=== PATIENT | male | born 1990 | race Caucasian/White ===

== ENCOUNTER 2018-10-20 13:32 | Emergency (ER) | payer OTHER, SELFPAY ==
[2018-10-20 13:38] VITALS: BP 139/90; PULSE 97; RESP 20; TEMP 37.3; O2SAT 98; BMI 27.6
--- NOTE | 2018-10-20 14:12 | PC.NURSE ---
sliced 4th right digit with mandolin. 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
--- NOTE | 2018-10-20 14:43 | ED.WOUNDLAC ---
HPI - Wound/Laceration <Lucinda Rosario PA-C - Last Filed: 10/20/18 19:44> General Chief Complaint: Wound/Laceration Stated Complaint: GASH ON RT HAND RING FINGER TIP Time Seen by Provider: 10/20/18 14:43 Source: patient Mode of arrival: ambulatory Limitations: no limitations History of Present Illness HPI narrative: This healthy 28-year-old right-handed male was using a mandoline at work when he sliced his right pointer finger. He states it was bleeding profusely initially. He cleaned it thoroughly at work. He states it was a little tingly and numb initially, now the more tender. He denies any weakness or difficulty with movement. He denies any other injury. His tetanus vaccine is up-to-date in the last 2 years. Related Data Previous Rx's Medication Instructions Recorded cephalexin [Keflex] 500 mg PO QID #20 cap 05/30/17 Allergies Allergy/AdvReac Type Severity Reaction Status Date / Time No Known Drug Allergies Allergy Verified 10/20/18 14:36 Review of Systems <Lucinda Rosario PA-C - Last Filed: 10/20/18 19:44> Review of Systems ROS Unobtainable: All systems reviewed & are unremarkable except as noted in HPI and below PFSH <Lucinda Rosario PA-C - Last Filed: 10/20/18 19:44> Medical History Healthy adult male (Chronic) Surgical History History of cholesteatoma (Resolved) Social History Smoking Status: Never smoker Social History Smoking Status: Never smoker Comment: Occasional ETOH Exam <Lucinda Rosario PA-C - Last Filed: 10/20/18 19:44> Narrative Exam Narrative: GENERAL APPEARANCE: Patient sitting comfortably, in no distress. LUNGS: Clear to auscultation bilaterally. HEART: Rate and rhythm regular without murmur, normal S1 and S2, no S3 or S4. DERMATOLOGIC: Right ring finger medial border of the pad there is a 1.4 cm laceration that has a 2 mm gap, 3 mm maximal depth, tender surrounding the wound, not actively bleeding MUSCULOSKELETAL: Right ring finger full range of motion, strength is intact against resistance in all hightower NEUROVASCULAR: Right ring finger is warm and pink with brisk cap refill, sensation grossly intact Initial Vital Signs Initial Vital Signs: Vital Signs Temperature 99.2 F 10/20/18 13:38 Pulse Rate 97 H 10/20/18 13:38 Respiratory Rate 20 10/20/18 13:38 Blood Pressure 139/90 10/20/18 13:38 Pulse Oximetry 98 10/20/18 13:38 <DO Ten Au Last Filed: 10/22/18 19:27> Initial Vital Signs Initial Vital Signs: Vital Signs Temperature 99.2 F 10/20/18 13:38 Pulse Rate 97 H 10/20/18 13:38 Respiratory Rate 20 10/20/18 13:38 Blood Pressure 139/90 10/20/18 13:38 Pulse Oximetry 98 10/20/18 13:38 Procedures <LEANDRA Guzman Last Filed: 10/20/18 19:44> Laceration Repair Laceration 1: Site: hand Side (If applicable): right Size (cm): 1.4 Description: linear Depth: simple, single layer Local Anesthetic: lidocaine 1% Amount of anesthesia used (mL): 6 Pre-repair: wound explored, irrigated extensively and deep structures intact Skin layer closed with: nylon Size (cm): 5-0 (2) Number of sutures: 4 Technique: simple, interrupted Course <LEANDRA Guzman Last Filed: 10/20/18 19:44> Orders Ordered: Discontinued Medications Ibuprofen (Advil) 800 mg PO NOW ONE Stop: 10/20/18 14:59 Last Admin: 10/20/18 15:00 Dose: 800 mg Vital Signs - 8 hr 10/20/18 13:38 Temperature 99.2 F Pulse Rate 97 H Respiratory Rate 20 Blood Pressure 139/90 Pulse Oximetry 98 <DO Ten Au Last Filed: 10/22/18 19:27> Orders Ordered: Discontinued Medications Ibuprofen (Advil) 800 mg PO NOW ONE Stop: 10/20/18 14:59 Last Admin: 10/20/18 15:00 Dose: 800 mg Vital Signs - 8 hr 10/20/18 13:38 Temperature 99.2 F Pulse Rate 97 H Respiratory Rate 20 Blood Pressure 139/90 Pulse Oximetry 98 Discharge Plan Departure Patient Disposition: Home Clinical Impression: Laceration of left index finger Qualifiers: Encounter type: initial encounter Damage to nail status: without damage Foreign body presence: without foreign body Qualified Code(s): S61.211A - Laceration without foreign body of left index finger without damage to nail, initial encounter Discharge Date/Time: 10/20/18 16:08 Interventions: ED Discharge Assessment Last Done: 10/20/18 16:07 Instructions: DI for Laceration Repair -- Finger Activity Restrictions/Additional Instructions: Keep your stitches clean and dry. Keep them covered at work. You can leave uncovered an open to air if you are relaxing and not working. It is okay to rinse them and pat dry quickly, i.e. if you are showering. They should be ready to remove in a week. You can return here or to walk in to have them removed, or [facility] on commercial will be happy to see you under your labor and Industries the claim to have your sutures removed as well. You should return here or be seen at a walk-in clinic right away if any signs of infection, i.e. redness, increased pain or swelling, draining pus or fever. Prescriptions: No Action cephalexin [Keflex] 500 MG capsule 500 mg PO QID Qty: 20 RF: 0 Referrals: [facility] [Provider Group] <Renay Lund DO - Last Filed: 10/22/18 19:27> Cosign ED Attending Cosignature Attestation: I was immediately available in the department for consultation. This documentation has been reviewed, unclear if patient did receive sutures or if was treated as avulsion injury. Supervised by Renay Lund DO
[2018-10-20] MEDS: IBUPROFEN 400 MG TABLET 800 MG PO (15:00)
== END 2018-10-20 16:08 | disposition home or self-care (01) ==
PROVIDERS: Emergency Provider Internal Medicine
DX: S61.210A Laceration without foreign body of right index finger without damage to nail, initial encounter (principal); W26.8XXA Contact with other sharp object(s), not elsewhere classified, initial encounter; Y99.0 Civilian activity done for income or pay
CPT/HCPCS: 12001; 99283

== ENCOUNTER 2019-05-18 12:34 | Emergency (ER) | payer OTHER, SELFPAY ==
[2019-05-18 12:40] VITALS: BP 175/94; PULSE 103; RESP 18; TEMP 36.9; O2SAT 100
[2019-05-18 13:12] LABS: Add Manual Diff / Slide Review NO; Basophils Absolute Auto 0 /uL (0-100); Basophils Percent Auto 0.7 % (0-2); Eosinophils Absolute Auto 100 /uL (0-450); Eosinophils Percent Auto 2.3 % (2-4); Hematocrit 47.7 % (41-53); Hemoglobin 16.6 g/dL (13.5-17.5); Lymphocytes Absolute Auto 1700 /uL (1100-4500); Lymphocytes Percent Auto 32.2 % (25-40); Mean Corpuscular HGB Conc 34.7 % (30-36); Mean Corpuscular Hemoglobin 29.6 PG (26-34); Mean Corpuscular Volume 85.2 fL (80-100); Monocytes Absolute Auto 400 /uL (0-900); Monocytes Percent Auto 7.6 % (3-14); Neutrophils Absolute Auto 2900 /uL (1500-7000); Neutrophils Percent Auto 57.2 % (50-75); Platelet Count 208 X10^3/uL (150-400); Red Cell Distribution Width 13.4 % (11.6-14.8); White Blood Cell Count 5.1 X10^3/uL (4.5-11.0)
[2019-05-18] MEDS: SODIUM CHLORIDE 0.9% 1,000 ML 1000 ML IV (13:15)
[2019-05-18 13:18] LABS: INR 0.9 (0.9-1.3); Prothrombin Time 10.8 SECONDS (10.1-12.7)
[2019-05-18 13:21] LABS: PTT Partial Thromboplastin Tim 37 SECONDS (26.4-36.2)
[2019-05-18 13:23] LABS: Alanine Aminotransferase 46 IU/L (21-72); Albumin Globulin Ratio 1.7 (1.0-2.8); Alkaline Phosphatase 53 U/L (38-126); Aspartate Aminotransferase 29 IU/L (17-59); BUN Creatinine Ratio 17.8 (6-22); Bilirubin Total 0.6 mg/dL (0.2-1.3); Blood Urea Nitrogen 16 mg/dL (9-20); Calcium 9.6 mg/dL (8.4-10.2); Carbon Dioxide 27 mmol/L (22-32); Chloride 103 mmol/L (98-107); Estimated Glomerular Filt Rate > 60.0 mL/min (>60); Globulin 2.9 g/dL (1.7-4.1); Glucose 110 mg/dL (70-100); HEMOLYSIS < 15 (0-50); Lipase 43 U/L (23-300); Potassium 4.1 mmol/L (3.4-5.1); Sodium 141 mmol/L (137-145); Total Protein 7.9 g/dL (6.3-8.2)
--- NOTE | 2019-05-18 13:23 | ED.MALEGU ---
HPI - Male Genitourinary General Chief complaint: Urogenital-Male Stated complaint: uti Time Seen by Provider: 05/18/19 13:18 Related Data Allergies Allergy/AdvReac Type Severity Reaction Status Date / Time ciprofloxacin [From Cipro] AdvReac Intermediate Joint Pain Verified 05/18/19 12:43 [facility] Medical History (Updated 10/20/18 @ 15:57 by Lucinda Rosario PA-C) Healthy adult male (Chronic) Surgical History (Updated 10/20/18 @ 15:09 by Lucinda oRsario PA-C) History of cholesteatoma (Resolved) Social History Smoking Status: Never smoker Social History Smoking Status: Never smoker Exam Initial Vital Signs Initial Vital Signs: Vital Signs Temperature 98.4 F 05/18/19 12:40 Pulse Rate 103 H 05/18/19 12:40 Respiratory Rate 18 05/18/19 12:40 Blood Pressure 175/94 H 05/18/19 12:40 Pulse Oximetry 100 05/18/19 12:40 Course Orders Ordered: ED Orders 05/18/19 12:57 Complete Blood Count AUTO DIFF Stat Comprehensive Metabolic Panel Stat Lactate (Lactic Acid) Stat Lipase Stat Partial Thromboplastin Time Stat Prothrombin Time INR Stat 05/18/19 13:19 Blood Culture Stat Sodium Chloride (Normal Saline 0.9%) 1,000 mls @ 1,000 mls/hr IV BOLUS ONE Stop: 05/18/19 13:43 Last Admin: 05/18/19 13:15 Dose: 1,000 mls/hr Documented by: MERLIN Vital Signs Vital signs: Vital Signs - 8 hr 05/18/19 12:40 Temperature 98.4 F Pulse Rate 103 H Respiratory Rate 18 Blood Pressure 175/94 H Pulse Oximetry 100 MDM - Male Genitourinary Lab Data Result diagrams: 05/18/19 12:57 05/18/19 12:57 Labs: Lab Results 05/18/19 05/18/19 05/18/19 Range/Units 12:57 12:57 12:57 WBC 5.1 (4.5-11.0) X10^3/uL RBC 5.60 (4.5-5.9) X10^6/uL Hgb 16.6 (13.5-17.5) g/dL Hct 47.7 (41-53) % MCV 85.2 (80-100) fL MCH 29.6 (26-34) PG MCHC 34.7 (30-36) % RDW 13.4 (11.6-14.8) % Plt Count 208 (150-400) X10^3/uL Neut % (Auto) 57.2 (50-75) % Lymph % (Auto) 32.2 (25-40) % [place] % (Auto) 7.6 (3-14) % Eos % (Auto) 2.3 (2-4) % Baso % (Auto) 0.7 (0-2) % Neut # (Auto) 2900 (0112-9830) /uL Lymph # (Auto) 1700 (8807-3038) /uL [place] # (Auto) 400 (0-900) /uL Eos # (Auto) 100 (0-450) /uL Baso # (Auto) 0 (0-100) /uL PT 10.8 (10.1-12.7) SECONDS INR 0.9 (0.9-1.3) APTT 37 H (26.4-36.2) SECONDS Sodium 141 (137-145) mmol/L Potassium 4.1 (3.4-5.1) mmol/L Chloride 103 (98-107) mmol/L Carbon Dioxide 27 (22-32) mmol/L BUN 16 (9-20) mg/dL Creatinine 0.90 (0.66-1.25) mg/dL Estimated GFR > 60.0 (>60) mL/min BUN/Creatinine Ratio 17.8 (6-22) Glucose 110 H (70-100) mg/dL Lactate (0.7-2.1) mmol/L Calcium 9.6 (8.4-10.2) mg/dL Total Bilirubin 0.6 (0.2-1.3) mg/dL AST 29 (17-59) IU/L ALT 46 (21-72) IU/L Alkaline Phosphatase 53 (38-126) U/L Total Protein 7.9 (6.3-8.2) g/dL Albumin 5.0 (3.5-5.0) g/dL Globulin 2.9 (1.7-4.1) g/dL Albumin/Globulin Ratio 1.7 (1.0-2.8) Lipase 43 (23-300) U/L 05/18/19 Range/Units 12:57 WBC (4.5-11.0) X10^3/uL RBC (4.5-5.9) X10^6/uL Hgb (13.5-17.5) g/dL Hct (41-53) % MCV (80-100) fL MCH (26-34) PG MCHC (30-36) % RDW (11.6-14.8) % Plt Count (150-400) X10^3/uL Neut % (Auto) (50-75) % Lymph % (Auto) (25-40) % [place] % (Auto) (3-14) % Eos % (Auto) (2-4) % Baso % (Auto) (0-2) % Neut # (Auto) (6736-0240) /uL Lymph # (Auto) (5407-8868) /uL [place] # (Auto) (0-900) /uL Eos # (Auto) (0-450) /uL Baso # (Auto) (0-100) /uL PT (10.1-12.7) SECONDS INR (0.9-1.3) APTT (26.4-36.2) SECONDS Sodium (137-145) mmol/L Potassium (3.4-5.1) mmol/L Chloride (98-107) mmol/L Carbon Dioxide (22-32) mmol/L BUN (9-20) mg/dL Creatinine (0.66-1.25) mg/dL Estimated GFR (>60) mL/min BUN/Creatinine Ratio (6-22) Glucose (70-100) mg/dL Lactate 1.0 (0.7-2.1) mmol/L Calcium (8.4-10.2) mg/dL Total Bilirubin (0.2-1.3) mg/dL AST (17-59) IU/L ALT (21-72) IU/L Alkaline Phosphatase (38-126) U/L Total Protein (6.3-8.2) g/dL Albumin (3.5-5.0) g/dL Globulin (1.7-4.1) g/dL Albumin/Globulin Ratio (1.0-2.8) Lipase (23-300) U/L
--- NOTE | 2019-05-18 14:02 | DI.CT.S_ITS ---
PROCEDURE: CT ABDOMEN PELVIS W CON INDICATIONS: bilateral lower abdomen pain, hx of colitis, UIT. abx med co TECHNIQUE: After the administration of oral and intravenous contrast, 5 mm thick sections acquired from the diaphragms to the symphysis. 5 mm thick coronal and sagittal reformats were performed. For radiation dose reduction, the following was used: automated exposure control, adjustment of mA and/or kV according to patient size. COMPARISON: [facility], CT, CT KUB, 12/15/2018, 16:13. [facility], CT, KUB - CT (PNL), 02/05/2012, 15:48. FINDINGS: Image quality: Diagnostic. ABDOMEN: Lung bases: Lung bases are clear. Heart size is normal. Solid organs: Liver is normal in size and enhancement. Gallbladder is not inflamed or enlarged. Biliary system is non-dilated. Pancreas enhances normally. Spleen is normal in size and enhancement. No adrenal nodules. Kidneys are normal in size and enhancement, without hydronephrosis. Peritoneum and bowel: The stomach is unremarkable. There may be mild wall thickening of the proximal duodenum with associated fatty infiltration, similar to the prior study. Small bowel loops are nondilated. The appendix is well-visualized and normal. A large amount of stool is seen throughout the colon. No mesenteric inflammation is evident. However, there is focal thickening of the wall of the splenic flexure of the colon. Otherwise, the remainder of the colon is unremarkable. Nodes and vessels: No retroperitoneal or mesenteric adenopathy. Aorta and inferior vena cava are normal in caliber. Bones: No acute fracture or suspicious osseous lesion is present. There are mild degenerative changes of the lower thoracic spine. PELVIS: Genitourinary: Bladder wall thickness is normal. Miscellaneous: Small fat-containing bilateral inguinal hernias are present. There is no free fluid or loculated fluid collection. No lymphadenopathy is identified. Bones: No suspicious bony lesions. No acute pelvic fractures are evident. Mild to moderate degenerative changes of the bilateral hips are more than expected for the patient's age. IMPRESSION: 1. Nonspecific wall thickening involving the duodenum and splenic flexure of the colon may be related to incomplete distention. However, focal duodenitis/colitis is difficult to exclude and clinical correlation is recommended. 2. Probable constipation. No bowel obstruction. 3. Small fat-containing bilateral inguinal hernias. 4. Mild to moderate degenerative changes of the hips is more than expected for the patient's age. Dictated by: Jorge Lagos M.D. on 05/18/2019 at 13:42 Approved by: Jorge Lagos M.D. on 05/18/2019 at 13:49
[2019-05-18 14:10] LABS: RBC Urine None Seen (0-5/HPF)
[2019-05-18] MEDS: KETOROLAC 60 MG/2 ML VIAL 30 MG IV (14:14)
[2019-05-18 14:21] LABS: Bacteria Urine Few (2-10); Culture Indicated Urine Specimen Cultured; Squamous Epithelial Cell Urine 1-5 /HPF (0-5/HPF); WBC Urine 1-5/HPF (0-5/HPF)
[2019-05-18 14:40] VITALS: BP 135/90; PULSE 90; RESP 16; O2SAT 98
--- NOTE | 2019-05-18 14:45 | ED.MALEGU ---
HPI - Male Genitourinary <SANA Mccormick - Last Filed: 05/18/19 23:42> General Chief complaint: Urogenital-Male Stated complaint: uti Time Seen by Provider: 05/18/19 13:39 Source: patient Mode of arrival: ambulatory Limitations: no limitations History of Present Illness HPI Narrative: This is a 28-year-old male, elida, who presents to ED with right lower quadrant pain and left flank pain with subjective chills. Patient reports was treated with antibiotic medication for ongoing UTI. The patient was referred from [facility] in [place] for CT test for this ongoing urinary symptoms and abdominal pain. Patient initially lower abdominal pain and distention about a month ago and was diagnosed with UTI at that time. Initially was treated with Cipro which she could not tolerated well with side effect, the medication was changed to doxycycline which she completed for a week but the culture sensitivity was not covered by this medication so the clinician changed to Augmentin which she completed a 10 day course 2 days ago. Patient reports he does not have nausea, vomiting, fever, decreased appetite, hematuria. Patient also reports was diagnosed with colitis 4 months ago and at that time his pain was mainly on left side abdomen and more severe. Patient reports supine position improves his discomfort and prolonged standing agree based the pain. Now patient has slight burning with urination in the morning. Patient reports no concerns for STI and declined the test. Related Data Allergies Allergy/AdvReac Type Severity Reaction Status Date / Time ciprofloxacin [From Cipro] AdvReac Intermediate Joint Pain Verified 05/18/19 12:43 Review of Systems <SANA Mccormick - Last Filed: 05/18/19 23:42> Review of Systems Narrative: General: See HPI HEENT: Denies sinus pain, ear pain, sore throat, difficulty swallowing, dizziness. Respiratory: Denies dyspnea, cough, wheezing, hemoptysis, sputum. Cardiovascular: Denies chest pain, palpitations, orthopnea, edema. Gastrointestinal: See HPI : See HPI Musculoskeletal: Reports left flank pain. Denies weakness, joint pain or bony pain. Skin: Denies rash, skin lesions, or other. Neurologic: Denies weakness, headache, numbness, change in speech, confusion, seizures, incoordination. Psychiatric: No concerning psychosocial issues. 12-point review of systems is negative except for those stated above. PFSH <SANA Mccormick - Last Filed: 05/18/19 23:42> Medical History (Updated 05/18/19 @ 15:12 by SANA Mccormick) Colitis (Acute) Healthy adult male (Chronic) Surgical History (Updated 05/18/19 @ 14:50 by SANA Mccormick) History of cholesteatoma (Resolved) Social History Smoking Status: Never smoker Social History Smoking Status: Never smoker Exam <SANA Mccormick - Last Filed: 05/18/19 23:42> Narrative Exam Narrative: GEN: Alert, oriented x 3, well appearing and nourished, and in no acute distress. Head: Normal cephalic, atraumatic. No scalp or temporal tenderness, palpable mass or rash. EYES: Pupils are equal, round, and reactive to light and accommodation. Extraocular muscles are intact bilaterally. There is no subconjunctival hemorrhage, exudate and sclera non-icteric. ENT: Bilateral auditory canals and tympanic membranes clear. Hearing grossly intact. Nose without bleeding, purulent discharge or deviation. Facial sinuses nontender to palpate. Mucous membrane moist, no mucosal lesion. Throat without erythema, tonsillar hypertrophy or exudate. Uvula in midline, airway patent. Neck: Trachea in midline. No JVD, non-tender without lymphadenopathy. No masses or thyroid megaly. Supple, non-tender and no meningeal signs. CARDIAC: Normal regular rate and rhythm without murmurs, gallops, or rubs. No chest wall tenderness. No peripheral edema, cyanosis or pallor. Capillary refill is less than 2 seconds. RESPIRATORY: Lungs are cleat to auscultate bilaterally. No cough, wheezes, rales, or rhonchi. No stridor, respiratory distress, increase work of breathing, or accessary muscle used. ABD: Tender to palpate in bilateral lower abdomen and suprapubic region. Abdomen soft and non-distended. No guarding or rebound tenderness to palpate. Bowel sounds are normal in all 4 quadrants. There is no palpable masses or organomegaly. EXT: Full painless ROM of all extremities with no loss of sensation, strength, effusion or edema. SKIN: Warm, dry, normal color for patient. No erythema, lesions or rash over visible areas. BACK: Nontender without deformity or crepitance. No flank tenderness. NEUROLOGICAL: Alert and oriented to place, time and person. Sensation and motor function intact bilaterally. No facial droops, dysphasia. PSYCHIATRIC: Good judgement and reason, without hallucinations, abnormal affect or abnormal behaviors during the examination. Patient is not suicidal. Initial Vital Signs Initial Vital Signs: Vital Signs Temperature 98.4 F 05/18/19 12:40 Pulse Rate 103 H 05/18/19 12:40 Respiratory Rate 18 05/18/19 12:40 Blood Pressure 175/94 H 05/18/19 12:40 Pulse Oximetry 100 05/18/19 12:40 <Renay Lnud DO - Last Filed: 05/19/19 07:35> Initial Vital Signs Initial Vital Signs: Vital Signs Temperature 98.4 F 05/18/19 12:40 Pulse Rate 103 H 05/18/19 12:40 Respiratory Rate 18 05/18/19 12:40 Blood Pressure 175/94 H 05/18/19 12:40 Pulse Oximetry 100 05/18/19 12:40 Scores <SANA Mccormick - Last Filed: 05/18/19 23:42> GCS [place] coma scale eye opening: Spontaneous [place] coma scale verbal response: Orientated [place] coma scale motor response: Obey commands F[place]umo coma scale total score: 15 Course <SANA Mccormick - Last Filed: 05/18/19 23:42> Orders Ordered: Discontinued Medications Sodium Chloride (Normal Saline 0.9%) 1,000 mls @ 1,000 mls/hr IV BOLUS ONE Stop: 05/18/19 13:43 Last Infusion: 05/18/19 15:22 Dose: 0 mls/hr Documented by: Admin: 05/18/19 13:15 Dose: 1,000 mls/hr Documented by: MERLIN Ketorolac Tromethamine (Toradol) 30 mg IV NOW ONE Stop: 05/18/19 14:03 Last Admin: 05/18/19 14:14 Dose: 30 mg Documented by: MERLIN Vital Signs Vital signs: Vital Signs - 8 hr 05/18/19 15:24 Pulse Rate 81 Respiratory Rate 16 Blood Pressure 121/81 Pulse Oximetry 99 <Renay Lund DO - Last Filed: 05/19/19 07:35> Orders Ordered: Discontinued Medications Sodium Chloride (Normal Saline 0.9%) 1,000 mls @ 1,000 mls/hr IV BOLUS ONE Stop: 05/18/19 13:43 Last Infusion: 05/18/19 15:22 Dose: 0 mls/hr Documented by: Admin: 05/18/19 13:15 Dose: 1,000 mls/hr Documented by: MERLIN Ketorolac Tromethamine (Toradol) 30 mg IV NOW ONE Stop: 05/18/19 14:03 Last Admin: 05/18/19 14:14 Dose: 30 mg Documented by: MERLIN Vital Signs Vital signs: Vital Signs - 8 hr 05/18/19 15:24 Pulse Rate 81 Respiratory Rate 16 Blood Pressure 121/81 Pulse Oximetry 99 MDM - Male Genitourinary <SANA Mccormick - Last Filed: 05/18/19 23:42> Differential Diagnosis Differential diagnosis: Likely urinary tract infection and other (Colitis, appendicitis, obstruction kidney stone) Medical Records Attestation: I reviewed the patient's medical records. Lab Data Attestation: I reviewed the patient's lab results. Result diagrams: 05/18/19 12:57 05/18/19 12:57 Labs: Lab Results 05/18/19 05/18/19 05/18/19 Range/Units 12:57 12:57 12:57 WBC 5.1 (4.5-11.0) X10^3/uL RBC 5.60 (4.5-5.9) X10^6/uL Hgb 16.6 (13.5-17.5) g/dL Hct 47.7 (41-53) % MCV 85.2 (80-100) fL MCH 29.6 (26-34) PG MCHC 34.7 (30-36) % RDW 13.4 (11.6-14.8) % Plt Count 208 (150-400) X10^3/uL Neut % (Auto) 57.2 (50-75) % Lymph % (Auto) 32.2 (25-40) % [place] % (Auto) 7.6 (3-14) % Eos % (Auto) 2.3 (2-4) % Baso % (Auto) 0.7 (0-2) % Neut # (Auto) 2900 (0199-1622) /uL Lymph # (Auto) 1700 (9875-5188) /uL [place] # (Auto) 400 (0-900) /uL Eos # (Auto) 100 (0-450) /uL Baso # (Auto) 0 (0-100) /uL PT 10.8 (10.1-12.7) SECONDS INR 0.9 (0.9-1.3) APTT 37 H (26.4-36.2) SECONDS Sodium 141 (137-145) mmol/L Potassium 4.1 (3.4-5.1) mmol/L Chloride 103 (98-107) mmol/L Carbon Dioxide 27 (22-32) mmol/L BUN 16 (9-20) mg/dL Creatinine 0.90 (0.66-1.25) mg/dL Estimated GFR > 60.0 (>60) mL/min BUN/Creatinine Ratio 17.8 (6-22) Glucose 110 H (70-100) mg/dL Lactate (0.7-2.1) mmol/L Calcium 9.6 (8.4-10.2) mg/dL Total Bilirubin 0.6 (0.2-1.3) mg/dL AST 29 (17-59) IU/L ALT 46 (21-72) IU/L Alkaline Phosphatase 53 (38-126) U/L Total Protein 7.9 (6.3-8.2) g/dL Albumin 5.0 (3.5-5.0) g/dL Globulin 2.9 (1.7-4.1) g/dL Albumin/Globulin Ratio 1.7 (1.0-2.8) Lipase 43 (23-300) U/L Urine RBC (0-5/HPF) Urine WBC (0-5/HPF) Ur Squamous Epith Cells (0-5/HPF) Urine Bacteria (None) Ur Culture Indicated? 05/18/19 05/18/19 Range/Units 12:57 13:51 WBC (4.5-11.0) X10^3/uL RBC (4.5-5.9) X10^6/uL Hgb (13.5-17.5) g/dL Hct (41-53) % MCV (80-100) fL MCH (26-34) PG MCHC (30-36) % RDW (11.6-14.8) % Plt Count (150-400) X10^3/uL Neut % (Auto) (50-75) % Lymph % (Auto) (25-40) % [place] % (Auto) (3-14) % Eos % (Auto) (2-4) % Baso % (Auto) (0-2) % Neut # (Auto) (5776-6531) /uL Lymph # (Auto) (0216-3996) /uL [place] # (Auto) (0-900) /uL Eos # (Auto) (0-450) /uL Baso # (Auto) (0-100) /uL PT (10.1-12.7) SECONDS INR (0.9-1.3) APTT (26.4-36.2) SECONDS Sodium (137-145) mmol/L Potassium (3.4-5.1) mmol/L Chloride (98-107) mmol/L Carbon Dioxide (22-32) mmol/L BUN (9-20) mg/dL Creatinine (0.66-1.25) mg/dL Estimated GFR (>60) mL/min BUN/Creatinine Ratio (6-22) Glucose (70-100) mg/dL Lactate 1.0 (0.7-2.1) mmol/L Calcium (8.4-10.2) mg/dL Total Bilirubin (0.2-1.3) mg/dL AST (17-59) IU/L ALT (21-72) IU/L Alkaline Phosphatase (38-126) U/L Total Protein (6.3-8.2) g/dL Albumin (3.5-5.0) g/dL Globulin (1.7-4.1) g/dL Albumin/Globulin Ratio (1.0-2.8) Lipase (23-300) U/L Urine RBC None seen (0-5/HPF) Urine WBC 1-5/hpf (0-5/HPF) Ur Squamous Epith Cells 1-5 /hpf (0-5/HPF) Urine Bacteria Few (2-10) H (None) Ur Culture Indicated? Specimen cultured Urine Dip Bedside Urine Glucose Negative Bedside Urine Bilirubin - Negative Bedside Urine Ketone - Negative Urine Specific Todd 1.020 Bedside Urine Occult Blood - Negative Bedside Urine pH 6.5 Bedside Urine Protein - Negative Bedside Urine Urobilinogen - Negative Bedside Urine Nitrite - Negative Bedside Urine Leukocytes +/- [address] scan - abdomen: Radiologist's impression: [address] [address] [address] Scan Report Signed Patient: Oz Urbina SMR#: [id number] : 1990Acct:[id number] Age/Sex: 28 MDate of Service: 05/18/19 Loc: ED Accession Number: [id number] Procedure: CT abdomen pelvis w con Ordering Provider: Colin Fuentes PROCEDURE: CT ABDOMEN PELVIS W CON INDICATIONS: bilateral lower abdomen pain, hx of colitis, UIT. abx med co TECHNIQUE: After the administration of oral and intravenous contrast, 5 mm thick sections acquired from the diaphragms to the symphysis. 5 mm thick coronal and sagittal reformats were performed. For radiation dose reduction, the following was used: automated exposure control, adjustment of mA and/or kV according to patient size. COMPARISON: [facility], CT, CT KUB, 12/15/2018, 16:13. [facility], CT, KUB - CT (PNL), 02/05/2012, 15:48. FINDINGS: Image quality: Diagnostic. ABDOMEN: Lung bases: Lung bases are clear. Heart size is normal. Solid organs: Liver is normal in size and enhancement. Gallbladder is not inflamed or enlarged. Biliary system is non-dilated. Pancreas enhances normally. Spleen is normal in size and enhancement. No adrenal nodules. Kidneys are normal in size and enhancement, without hydronephrosis. Peritoneum and bowel: The stomach is unremarkable. There may be mild wall thickening of the proximal duodenum with associated fatty infiltration, similar to the prior study. Small bowel loops are nondilated. The appendix is well-visualized and normal. A large amount of stool is seen throughout the colon. No mesenteric inflammation is evident. However, there is focal thickening of the wall of the splenic flexure of the colon. Otherwise, the remainder of the colon is unremarkable. Nodes and vessels: No retroperitoneal or mesenteric adenopathy. Aorta and inferior vena cava are normal in caliber. Bones: No acute fracture or suspicious osseous lesion is present. There are mild degenerative changes of the lower thoracic spine. PELVIS: Genitourinary: Bladder wall thickness is normal. Miscellaneous: Small fat-containing bilateral inguinal hernias are present. There is no free fluid or loculated fluid collection. No lymphadenopathy is identified. Bones: No suspicious bony lesions. No acute pelvic fractures are evident. Mild to moderate degenerative changes of the bilateral hips are more than expected for the patient's age. IMPRESSION: 1. Nonspecific wall thickening involving the duodenum and splenic flexure of the colon may be related to incomplete distention. However, focal duodenitis/colitis is difficult to exclude and clinical correlation is recommended. 2. Probable constipation. No bowel obstruction. 3. Small fat-containing bilateral inguinal hernias. 4. Mild to moderate degenerative changes of the hips is more than expected for the patient's age. [facility] Narrative Medical decision making narrative: This patient was refer to from [facility] for advanced imaging test. Patient has history of colitis 4 months ago. Patient treated with UTI a month ago and had finished 2 rounds of antibiotic medication. Patient reports right lower quadrant pain and left flank pain with no constitutional symptoms. Patient states continue to have mild urinary burning symptoms with urination. The patient's blood tests for CBC and chemistries were unremarkable with normal GFR and creatinine level. The urine test was completed showing few urine bacteria and the cultures being done at this time. CT scan was obtained on abdomen and it shows no kidney stone, no hydronephrosis, no appendicitis. However, he showed possible focal to do low denied is or colitis. Patient just completed 10 day course of Augmentin 2 days ago. Patient's vital signs are normal without afebrile. It also showed a probable constipation without obstruction, small bilateral inguinal hernia, mild to moderate degenerative changes of the hips. I share the findings with the patient assured that there was no tumors or obstructing stones were found in his kidney area as he had concerned. Patient informed that he will be in contact if his urine culture indicates the treatment with another antibiotic medication. Return precautions were discussed with patient and patient advised to follow up with the clinician who had ordered CT scan. Patient agrees with treatment plan and further questions were expressed at this time. <Renay Lund, - Last Filed: 05/19/19 07:35> Lab Data Labs: Lab Results 05/18/19 05/18/19 05/18/19 Range/Units 12:57 12:57 12:57 WBC 5.1 (4.5-11.0) X10^3/uL RBC 5.60 (4.5-5.9) X10^6/uL Hgb 16.6 (13.5-17.5) g/dL Hct 47.7 (41-53) % MCV 85.2 (80-100) fL MCH 29.6 (26-34) PG MCHC 34.7 (30-36) % RDW 13.4 (11.6-14.8) % Plt Count 208 (150-400) X10^3/uL Neut % (Auto) 57.2 (50-75) % Lymph % (Auto) 32.2 (25-40) % [place] % (Auto) 7.6 (3-14) % Eos % (Auto) 2.3 (2-4) % Baso % (Auto) 0.7 (0-2) % Neut # (Auto) 2900 (2176-1163) /uL Lymph # (Auto) 1700 (7938-9561) /uL [place] # (Auto) 400 (0-900) /uL Eos # (Auto) 100 (0-450) /uL Baso # (Auto) 0 (0-100) /uL PT 10.8 (10.1-12.7) SECONDS INR 0.9 (0.9-1.3) APTT 37 H (26.4-36.2) SECONDS Sodium 141 (137-145) mmol/L Potassium 4.1 (3.4-5.1) mmol/L Chloride 103 (98-107) mmol/L Carbon Dioxide 27 (22-32) mmol/L BUN 16 (9-20) mg/dL Creatinine 0.90 (0.66-1.25) mg/dL Estimated GFR > 60.0 (>60) mL/min BUN/Creatinine Ratio 17.8 (6-22) Glucose 110 H (70-100) mg/dL Lactate (0.7-2.1) mmol/L Calcium 9.6 (8.4-10.2) mg/dL Total Bilirubin 0.6 (0.2-1.3) mg/dL AST 29 (17-59) IU/L ALT 46 (21-72) IU/L Alkaline Phosphatase 53 (38-126) U/L Total Protein 7.9 (6.3-8.2) g/dL Albumin 5.0 (3.5-5.0) g/dL Globulin 2.9 (1.7-4.1) g/dL Albumin/Globulin Ratio 1.7 (1.0-2.8) Lipase 43 (23-300) U/L Urine RBC (0-5/HPF) Urine WBC (0-5/HPF) Ur Squamous Epith Cells (0-5/HPF) Urine Bacteria (None) Ur Culture Indicated? 05/18/19 05/18/19 Range/Units 12:57 13:51 WBC (4.5-11.0) X10^3/uL RBC (4.5-5.9) X10^6/uL Hgb (13.5-17.5) g/dL Hct (41-53) % MCV (80-100) fL MCH (26-34) PG MCHC (30-36) % RDW (11.6-14.8) % Plt Count (150-400) X10^3/uL Neut % (Auto) (50-75) % Lymph % (Auto) (25-40) % [place] % (Auto) (3-14) % Eos % (Auto) (2-4) % Baso % (Auto) (0-2) % Neut # (Auto) (2879-7846) /uL Lymph # (Auto) (7452-6112) /uL [place] # (Auto) (0-900) /uL Eos # (Auto) (0-450) /uL Baso # (Auto) (0-100) /uL PT (10.1-12.7) SECONDS INR (0.9-1.3) APTT (26.4-36.2) SECONDS Sodium (137-145) mmol/L Potassium (3.4-5.1) mmol/L Chloride (98-107) mmol/L Carbon Dioxide (22-32) mmol/L BUN (9-20) mg/dL Creatinine (0.66-1.25) mg/dL Estimated GFR (>60) mL/min BUN/Creatinine Ratio (6-22) Glucose (70-100) mg/dL Lactate 1.0 (0.7-2.1) mmol/L Calcium (8.4-10.2) mg/dL Total Bilirubin (0.2-1.3) mg/dL AST (17-59) IU/L ALT (21-72) IU/L Alkaline Phosphatase (38-126) U/L Total Protein (6.3-8.2) g/dL Albumin (3.5-5.0) g/dL Globulin (1.7-4.1) g/dL Albumin/Globulin Ratio (1.0-2.8) Lipase (23-300) U/L Urine RBC None seen (0-5/HPF) Urine WBC 1-5/hpf (0-5/HPF) Ur Squamous Epith Cells 1-5 /hpf (0-5/HPF) Urine Bacteria Few (2-10) H (None) Ur Culture Indicated? Specimen cultured Urine Dip Bedside Urine Glucose Negative Bedside Urine Bilirubin - Negative Bedside Urine Ketone - Negative Urine Specific Todd 1.020 Bedside Urine Occult Blood - Negative Bedside Urine pH 6.5 Bedside Urine Protein - Negative Bedside Urine Urobilinogen - Negative Bedside Urine Nitrite - Negative Bedside Urine Leukocytes +/- 15 Esterase Discharge Plan Departure Patient Disposition: Home Clinical Impression: Abdominal pain Qualifiers: Abdominal location: lower abdomen, unspecified Qualified Code(s): R10.30 - Lower abdominal pain, unspecified Discharge Date/Time: 05/18/19 15:26 Instructions: DI for Kidney Infection, DI for Abdominal Pain-Adult Activity Restrictions/Additional Instructions: You have been diagnosed with [abdominal pain. The blood test for CBC and chemistry were unremarkable. The urine test shows few urine back area and is being cultured at this time. We will get a phone call from us if he you need further treatment with an antibiotic medication. The CT scan shows possible duodenitis or colitis, very small bilateral inguinal hernia. He just completed a course of antibiotic medication Augmentin for 10 days and you do not have fever so will hold off treatment for this. CT scan also showed is constipation. Please incorporate high-fiber diet, fluids, [id number] medications as needed for this.]. What to do: *Take your medications as directed. No new medications to go home with but he can take Tylenol and/or Motrin as needed for pain. *Follow up with your primary care provider at [facility] in 2-3 days, call for an appointment. Let them know you were seen in the ED and that we asked you to be seen in follow up. *Return to ED if you have any new, worsening, or concerning symptoms, such as [chest pain, breathing trouble, unable to tolerate fluids, increasing urinary symptoms, fever, severe back pain, fainting like symptoms, or any acute concerns]. Referrals: [facility] [Outside] <Renay Lnud DO - Last Filed: 05/19/19 07:35> Sign Out Provider Sign Out Attestation: I was immediately available in the department for consultation. This documentation has been reviewed and I agree with assessment and plan. Supervised by Renay Lund DO
[2019-05-18 15:00] VITALS: BP 121/81; PULSE 85; RESP 16; O2SAT 99
[2019-05-18 15:24] VITALS: BP 121/81; PULSE 81; RESP 16; O2SAT 99
== END 2019-05-18 15:26 | disposition home or self-care (01) ==
PROVIDERS: Emergency Medicine; Emergency Provider Nurse Practitioner Family
DX: R10.31 Right lower quadrant pain (principal)
CPT/HCPCS: 36415; 36591; 74177; 80053; 81003; 81015; 83605; 83690; 85025; 85610; 85730; 87040; 87077; 87086; 87186; 96361; 96374; 99283; 99285; J1885